=== PATIENT | female | born 2000 | race African-American/Black ===

== ENCOUNTER 2024-04-06 08:00 | Outpatient (CLI) | payer OTHER, SELFPAY ==
--- NOTE | ~2024-04-06 | US_ITS ---
EXAM: PELVIC ULTRASOUND HISTORY: R10.9 - Unspecified abdominal pain . Pelvic pain. COMPARISON: None FINDINGS: UTERUS: 8.4 x 4.7 x 3.1 cm. The uterus is anteverted and anteflexed. The endometrial complex measures 2.3 mm. RIGHT OVARY: The right ovary is unremarkable in echogenicity and size measuring 3.6 x 2.2 x 1.7 cm. Dopplerable flow is identified. LEFT OVARY: The left ovary is unremarkable in echogenicity and size measuring 3.8 x 1.9 x 1.9 cm Dopplerable flow is identified. Trace free fluid is identified within the pelvis, likely physiologic. IMPRESSION: Unremarkable sonographic evaluation of the, as detailed above. Reviewed, dictated and finalized at location A. P PRACTICE PEDIATRICIAN
--- OUTSIDE RECORDS SUMMARY | 2024-04-06 08:08 | XMS_ITS | Clinical Summary ---
Author Organization [facility] Address [address] [place] [address] Care Team Providers Care Drag Car Racer Name Role Phone Dave, Maria Alejandra Greer DO Primary Care Provider [phone] Allergies No known active allergies Medications ondansetron 4 MG disintegrating tablet Take 1 tablet (4 mg total) by mouth every 8 (eight) hours as needed for Nausea (and headache). 20 tablet 8 Active cyclobenzaprine 10 MG tablet Take 0.5 tablets (5 mg total) by mouth 3 (three) times daily as needed. 16 tablet 2 Active methylPREDNISolone, JOO, (MEDROL DOSEPAK) 4 MG tablet Take 1 tablet (4 mg total) by mouth daily. 6 TABLETS ON DAY ONE, 5 TABLETS DAY TWO, 4 TABLETS DAY THREE, 3 TABLETS DAY FOUR, 2 TABLETS DAY FIVE, AND 1 TABLET DAY SIX 1 each 4 Active Encounters Date Type Department Care Team Description 02/02/2024 8:11 AM POWER GENERATING PLANT OPERATOR - 02/02/2024 9:13 AM [facility] Emergency [facility] [place] [address] [place] [address] Salvador Conroy PA-C Sore Throat; Flu Like Symptoms Discharge Disposition: Home or Self Care (Routine Discharge) 02/02/2024 Travel from Last 3 Months Social History Tobacco Use Types Packs/Day Years Used Date Smoking Tobacco: Never Smokeless Tobacco: Never Alcohol Use Standard Drinks/Week Comments No 0 (1 standard drink = 0.6 oz pur e alcohol) AUDIT-C Answer Date Recorded Frequency of Alcohol Consumption Never 12/11/2017 Average Number of Drinks Not on file 018 Frequency of Binge Drinking Not on file 03/2017 Comments No Sex and Gender Information Value Date Recorded Sex Assigned at Not on file Legal Sex Female 3:53 PM CDT Gender Identity Not on file Sexual Orientation Not on file Last Filed Vital Signs Vital Sign Reading Time Taken Comments Blood Pressure 121/65 02/02/2024 8:03 AM POWER GENERATING PLANT OPERATOR Pulse 113 02/02/2024 9:05 AM POWER GENERATING PLANT OPERATOR Temperature 36.8 C (98.3 F) 02/02/2024 8:03 AM POWER GENERATING PLANT OPERATOR Respiratory Rate 18 02/02/2024 8:03 AM POWER GENERATING PLANT OPERATOR Oxygen Saturation 100% 02/02/2024 8:59 AM POWER GENERATING PLANT OPERATOR Inhaled Oxygen Concentration - - Weight 51.3 kg (113 lb) 02/02/2024 8:03 AM POWER GENERATING PLANT OPERATOR Height 154.9 cm (5' 1 ) 02/02/2024 8:03 AM POWER GENERATING PLANT OPERATOR Body Mass Index 21.35 02/02/2024 8:03 AM POWER GENERATING PLANT OPERATOR Plan of Treatment Health Maintenance Due Date Last Done Comments Cervical Cancer Screening Pap Smear (Age 21 to 29) Every 3 Years 2002 Cervical Cancer Screening 2002 Annual Physical 2005 Meningococcal B Vaccine (1 of 2 - Standard) 2018 Hepatitis C 2020 COVID-19 Vaccine ( - season) 2023 Influenza Adult (#1) 2023 11/25/2017 DTaP, Tdap and Td Vaccines (7 - Td or Tdap) 08/14/2024 08/14/2014, 12/08/2007, 05/20/2004, Additional history exists Hepatitis B Vaccines Completed 05/20/2004, 05/20/2004, 06/16/2003, Additional history exists Pneumococcal Vaccine: Pediatrics (0 to 5 Years) and At-Risk Patients (6 to 64 Years) Aged Out 05/20/2004, 09/25/2003, 04/11/2003, Additional history exists No longer eligible based on patient's age to complete this topic HPV Vaccines Completed 12/16/2018, 03/23/2017 Meningococcal Vaccine Completed 12/16/2018, 015 RSV Immunizations Under 20 Months Aged Out No longer eligible based on patient's age to complete this topic Procedures Procedure Name Priority Date/Time Associated Diagnosis Comments INFLUENZA A & B STAT 02/02/2024 8:15 AM POWER GENERATING PLANT OPERATOR CORONAVIRUS (COVID 19) STAT 02/02/2024 8:15 AM POWER GENERATING PLANT OPERATOR from Last 3 Months Results * CORONAVIRUS (COVID 19) (02/02/2024 8:15 AM POWER GENERATING PLANT OPERATOR) CORONAVIRUS SARS COV 2 RNA NEGATIVE NEGATIVE 02/02/2024 8:39 AM POWER GENERATING PLANT OPERATOR [facility] Comment: NEGATIVE RESULTS DO NOT RULE OUT COVID 19 AND SHOULD NOT BE USED THE SOLE BASIS FOR TREATMENT OR PATIENT MANAGEMENT DECISIONS, INCLUDING INFECTION CONTROL DECISIONS. NEGATIVE RESULTS SHOULD BE CONSIDERED IN THE CONTEXT OF A PATIENT'S RECENT EXPOSURES, HISTORY AND THE PRESENCE OF CLINICAL SIGNS AND SYMPTOMS CONSISTENT WITH COVID 19. THE ID NOW COVID-19 2.0 TEST HAS BEEN AUTHORIZED BY THE FDA UNDER EAU FOR USE BY AUTHORIZED LABORATORIES. PERFORMED BY NUCLEIC ACID AMPLIFICATION FOR MOLECULAR QUALITATIVE DETECTION OF SARS-COV-2. SPECIMEN TYPE NASAL 02/02/2024 8:15 AM POWER GENERATING PLANT OPERATOR [facility] NASAL STRUCTURE / Unknown 02/02/2024 8:15 AM POWER GENERATING PLANT OPERATOR Salvador Conroy PA-C MICROBIOLOGY - GENERAL DIANA GARCIA Final Result [facility] [address] [place] [address], * INFLUENZA A & B (02/02/2024 8:15 AM POWER GENERATING PLANT OPERATOR) SPECIMEN TYPE NASAL 02/02/2024 8:17 AM POWER GENERATING PLANT OPERATOR [facility] INFLUENZA A NEGATIVE NEGATIVE 02/02/2024 8:39 AM POWER GENERATING PLANT OPERATOR [facility] INFLUENZA B NEGATIVE NEGATIVE 02/02/2024 8:39 AM POWER GENERATING PLANT OPERATOR [facility] Comment: Interpretation: Negative for Influenza A and B. A negative result does not exclude influenza virus infection. If influenza is circulating in your community, a diagnosis of influenza should be considered based on a patient's clinical presentation and empiric antiviral treatment should be considered, if indicated. If more conclusive testing is needed for hospitalized inpatients, follow-up confirmatory testing with RT-PCR requires a separate order. NASAL STRUCTURE / Unknown 02/02/2024 8:15 AM POWER GENERATING PLANT OPERATOR Salvador Conroy PA-C MICROBIOLOGY - GENERAL DIANA GARCIA Final Result [facility] [address] [place] [address], from Last 3 Months Insurance [facility] JYOTI Advance Directives Documents on File Type Date Recorded Patient Textile Finisher Expl anation Legal Documents 10/22/2021 9:57 AM COMPLET ED BILLING REQUEST FOR ATTErnie ALEJANDRO Care Teams Drag Car Racer Relationship Specialty Start Date End Date Maria Alejandra Acosta DO [address] [address] PCP - General FAMILY PRACTICE 02/02/24
== END 2024-04-06 08:01 | disposition home or self-care (01) ==
LOC: ANHIMG 08:02
PROVIDERS: Visit Provider Obstetrics & Gynecology
DX: R10.9 Unspecified abdominal pain (principal)
CPT/HCPCS: 76830; 76856

== ENCOUNTER 2024-05-09 18:10 | Emergency (ER) | payer OTHER, SELFPAY ==
--- NOTE | ~2024-05-09 | XR_ITS ---
CHEST RADIOGRAPH, PA AND LATERAL CLINICAL HISTORY: shortness of breath . COMPARISON: None available TECHNIQUE: PA and lateral views of the chest. FINDINGS The cardiomediastinal silhouette is unremarkable. The lungs are clear. Visualized osseous structures and soft tissues are unremarkable. IMPRESSION: No focal infiltrate or effusion. Reviewed, dictated and finalized at location A.
--- OUTSIDE RECORDS SUMMARY | 2024-05-09 18:12 | XMS_ITS | Clinical Summary ---
Author Organization [facility] Address [address] [place] [address] Care Team Providers Care Industrial Cafeteria Manager Name Role Phone Dave, Maria Alejandra Greer DO Primary Care Provider [phone] Allergies No known active allergies Medications ondansetron [...] TABLET DAY SIX 1 each 4 Active Social History Tobacco Use Types Packs/Day Years [...] Comments Blood Pressure 121/65 02/02/2024 8:03 AM GAME AND FISH PROTECTOR Pulse 113 02/02/2024 9:05 AM GAME AND FISH PROTECTOR Temperature 36.8 C (98.3 F) 02/02/2024 8:03 AM GAME AND FISH PROTECTOR Respiratory Rate 18 02/02/2024 8:03 AM GAME AND FISH PROTECTOR Oxygen Saturation 100% 02/02/2024 8:59 AM GAME AND FISH PROTECTOR Inhaled Oxygen Concentration - - Weight 51.3 kg (113 lb) 02/02/2024 8:03 AM GAME AND FISH PROTECTOR Height 154.9 cm (5' 1 ) 02/02/2024 8:03 AM GAME AND FISH PROTECTOR Body Mass Index 21.35 02/02/2024 8:03 AM GAME AND FISH PROTECTOR Plan of Treatment Health Maintenance Due Date Last Done Comments Cervical Cancer Screening Pap Smear (Age 21 to 29) Every 3 Years 2002 Cervical Cancer Screening 2002 Annual Physical 2005 Meningococcal B Vaccine (1 of 2 - Standard) 2018 Hepatitis C 2020 COVID-19 Vaccine ( - season) 2023 DTaP, Tdap and Td Vaccines (7 - [...] on patient's age to complete this topic Insurance [facility] Advance Directives Documents on File Type Date Recorded Patient Ruling Technician Expl anation Legal Documents 10/22/2021 9:57 AM COMPLET ED BILLING REQUEST FOR MARTA ALEJANDRO Care Teams Industrial Cafeteria Manager Relationship Specialty Start Date End Date Maria Alejandra Acosta DO [address] [facility] [address] [place] [address] PCP - General FAMILY PRACTICE 02/02/24
[2024-05-09 18:25] VITALS: BP 109/80; PULSE 67; RESP 16; TEMP 36.5; O2SAT 100
--- NOTE | 2024-05-09 18:28 | ED.SOB ---
HPI - SOB/Dyspnea General Chief Complaint: Asthma <Elida Ordoñez APRN - Last Filed: 05/09/24 18:31> Stated Complaint: asthma <Elida Ordoñez APRN - Last Filed: 05/09/24 18:31> Time Seen by Provider: 05/09/24 18:25 <Elida Ordoñez APRN - Last Filed: 05/09/24 18:31> Focused HPI: Patient's is a 23-year-old female who presents to the ER with concerns of an asthma attack. She reports she started experiencing sinus infection last Thursday, 5 days ago. Patient reports she had asthma as a child but has not had any asthma attacks recently, so she no longer has any inhalers at home. She endorses some wheezing, shortness of breath, sinus pain. Patient denies any chest pain, recent fevers, back pain, neck stiffness, mastoid tenderness. GENERAL: Well-appearing, well-nourished, and in no acute distress. HEAD: Normocephalic, atraumatic. CHEST: Clear to auscultation. ?No respiratory distress. HEART: Regular rate and rhythm.? NEURO: ?Alert and oriented x3. Patient screened in triage and initial orders placed.? ?Additional care and disposition to be based upon?diagnostic testing and treatment. <Elida Ordoñez APRN - Last Filed: 05/09/24 18:31> History of Present Illness HPI Narrative: Agree with the HPI above. Patient states her symptoms started as a sinus infection and may have triggered her asthma. She does not any inhalers at home. <Des Mayorga MD - Last Filed: 05/09/24 20:28> Related Data Allergies/Adverse Reactions: Allergies Allergy/AdvReac Type Severity Reaction Status Date / Time No Known Allergies Allergy Verified 05/09/24 18:13 <Elida Ordoñez APRN - Last Filed: 05/09/24 18:31> Review of Systems Review of Systems: As reviewed above in HPI <Des Mayorga MD - Last Filed: 05/09/24 20:28> PMFSH Past Medical History Medical History: Medical History Nexplanon insertion 02/2023 Asthma <Elida Ordoñez APRN - Last Filed: 05/09/24 18:31> Family History Family History: Family History Mother Hypertension Sibling Hypertension <Elida Ordoñez, MEDICAL DOSIMETRIST - Last Filed: 05/09/24 18:31> Social History Social History: Social History Smoking status: Never smoker Alcohol intake: never Substance use: never Do You Feel Safe in your Home?: Yes Lack of Transportation: No Lack of Food: Never True Current Housing: I Have Housing Concerned About Future Housing: No Difficulty Paying Gas/Electric Bills: No Difficulty Paying for Meds: No Currently Unemployed: No Education: High School Diploma/GED Difficulty w/ Childcare or Family Care: No Living arrangements: with family Occupation/Education: student 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 Moist mucous membranes. NECK: Supple. CHEST: Mild end-expiratory wheezing, good air entry, no tachypnea, no accessory muscle use HEART: [Regular rate and rhythm]. No murmur heard. [Normal peripheral pulses.] ABDOMEN: [Soft, nondistended], [nontender], [No rigidity or guarding] EXTREMITIES: Normal range of motion. [No edema.] SKIN: Warm, dry, no rash. NEURO: [No focal deficits]. Alert and oriented [x3.] PSYCH: [Normal mood and affect.] <Des Mayorga MD - Last Filed: 05/09/24 20:28> Course Vital Signs Vital signs: Vital Signs Temperature 36.5 C 05/09/24 18:25 Pulse Rate 67 05/09/24 18:25 Respiratory Rate 16 05/09/24 18:25 Blood Pressure 109/80 05/09/24 18:25 Pulse Oximetry 100 05/09/24 18:25 Temperature 36.5 C 05/09/24 18:25 Pulse Rate 67 05/09/24 18:25 Respiratory Rate 16 05/09/24 18:25 Blood Pressure 109/80 05/09/24 18:25 Pulse Oximetry 100 05/09/24 18:25 <Elida Ordoñez, MEDICAL DOSIMETRIST - Last Filed: 05/09/24 18:31> Vital Signs Temperature 36.5 C 05/09/24 18:25 Pulse Rate 67 05/09/24 18:25 Respiratory Rate 16 05/09/24 18:25 Blood Pressure 109/80 05/09/24 18:25 Pulse Oximetry 100 05/09/24 18:25 Temperature 36.5 C 05/09/24 18:25 Pulse Rate 67 05/09/24 18:25 Respiratory Rate 16 05/09/24 18:25 Blood Pressure 109/80 05/09/24 18:25 Pulse Oximetry 100 05/09/24 18:25 <Des Mayorga MD - Last Filed: 05/09/24 20:28> MDM - SOB/Dyspnea MDM Narrative Medical decision making narrative: 23-year-old otherwise healthy female with history of childhood asthma presenting with upper respiratory infection symptoms as she believed his triggered an asthma exacerbation. She has good air entry on auscultation does have some scattered end-expiratory wheezing. Reports chest tightness sensation but has good oxygenation at 100% on room air. No tachypnea, no retractions, no fever. Normal blood pressure and heart rate. She has been doing with a sinus infection with discolored mucus and does sound congested. Suspicion presently is for an upper respiratory infection, sinusitis that may have triggered either bronchospasm, bronchitis or asthma exacerbation. Low suspicion pneumonia. A broad workup was ordered in triage. Chest x-ray, CBC, CMP and dimer were obtained by triage staff. Laboratory studies are reassuring, no leukocytosis or anemia. Negative D-dimer. Normal renal function. Negative troponin. Negative LFTs. Chest x-ray without any infiltrate or effusion. Patient was treated with a dose of azithromycin for her sinusitis and given an asthma inhaler with albuterol. She is safe and stable for discharge home at this time. Will be started on prescriptions for azithromycin and methylprednisolone. Patient will follow-up with regular doctor. <Des Mayorga MD - Last Filed: 05/09/24 20:28> Medical Records Attestation: I reviewed the patient's medical records. <Des Mayorga MD - Last Filed: 05/09/24 20:28> Lab Data Attestation: I reviewed the patient's lab results. <Des Mayorga MD - Last Filed: 05/09/24 20:28> Result diagrams: 05/09/24 18:55 05/09/24 18:55 <Elida Ordoñez APRN - Last Filed: 05/09/24 18:31> Labs: Lab Results 05/09/24 Range/Units 18:55 WBC 5.4 (4.5-10.0) K/mm3 RBC 4.54 (4.2-5.4) M/mm3 Hgb 12.2 (12.0-15.0) g/dL Hct 38.2 (37.0-47.0) % MCV 84.1 (80-100) fl MCH 26.9 (26-34) pg MCHC 31.9 L (32-36) g/dl RDW 14.1 (11.5-14.5) % Plt Count 247 (150-375) k/mm3 MPV 10.5 H (7.4-10.4) fl Immature Gran % (Auto) 0.4 (0-0.5) % Neut % (Auto) 41.5 L (45.5-73.1) % Lymph % (Auto) 42.6 (18.3-44.2) % Stearns % (Auto) 10.7 H (2.6-8.5) % Eos % (Auto) 3.9 (0-4.4) % Baso % (Auto) 0.9 (0.2-1.2) % Lymph # (Auto) 2.31 (0.9-3.2) K/mm3 Stearns # (Auto) 0.6 (0.1-0.6) K/mm3 Eos # (Auto) 0.2 (0-0.3) K/mm3 Baso # (Auto) 0.1 (0.0-0.1) K/mm3 Abs Immat Gran (auto) 0.02 (0.00-0.031) K/mm3 Absolute Neuts (auto) 2.3 (1.3-6.7) K/mm3 Absolute Nucleated RBC 0.000 (0.0-0.012) K/mm3 Nucleated RBC % 0.0 (0.0-0.2) % PT 13.9 (11.1-14.7) Seconds INR 1.0 APTT 27.8 (22.3-36.8) Seconds D-Dimer < 0.27 (<0.48) ug/mL Sodium 138 (137-145) mmol/L Potassium 4.4 (3.4-5.0) mmol/L Chloride 102 (98-107) mmol/L Carbon Dioxide 28 (22-30) mmol/L Anion Gap 8 (4-12) mmol/L BUN 11 (7-17) mg/dL Creatinine 0.70 (0.7-1.0) mg/dL Estim Creat Clear Calc 83 ml/min Estimated GFR > 60 (59 - ) Glucose 84 (65-110) mg/dL Calcium 9.3 (8.4-10.2) mg/dL Magnesium 2.0 (1.6-2.3) mg/dL Total Bilirubin 0.3 (0.2-1.3) mg/dL AST 32 (14-36) U/L ALT 34 (6-35) U/L Alkaline Phosphatase 79 (38-126) U/L Troponin I < 0.012 (0.000-0.034) ng/mL Total Protein 8.0 (6.3-8.2) g/dL Albumin 4.3 (3.5-5.1) g/dL <Elida Ordoñez, MEDICAL DOSIMETRIST - Last Filed: 05/09/24 18:31> Lab Results 05/09/24 Range/Units 18:55 WBC 5.4 (4.5-10.0) K/mm3 RBC 4.54 (4.2-5.4) M/mm3 Hgb 12.2 (12.0-15.0) g/dL Hct 38.2 (37.0-47.0) % MCV 84.1 (80-100) fl MCH 26.9 (26-34) pg MCHC 31.9 L (32-36) g/dl RDW 14.1 (11.5-14.5) % Plt Count 247 (150-375) k/mm3 MPV 10.5 H (7.4-10.4) fl Immature Gran % (Auto) 0.4 (0-0.5) % Neut % (Auto) 41.5 L (45.5-73.1) % Lymph % (Auto) 42.6 (18.3-44.2) % Stearns % (Auto) 10.7 H (2.6-8.5) % Eos % (Auto) 3.9 (0-4.4) % Baso % (Auto) 0.9 (0.2-1.2) % Lymph # (Auto) 2.31 (0.9-3.2) K/mm3 Stearns # (Auto) 0.6 (0.1-0.6) K/mm3 Eos # (Auto) 0.2 (0-0.3) K/mm3 Baso # (Auto) 0.1 (0.0-0.1) K/mm3 Abs Immat Gran (auto) 0.02 (0.00-0.031) K/mm3 Absolute Neuts (auto) 2.3 (1.3-6.7) K/mm3 Absolute Nucleated RBC 0.000 (0.0-0.012) K/mm3 Nucleated RBC % 0.0 (0.0-0.2) % PT 13.9 (11.1-14.7) Seconds INR 1.0 APTT 27.8 (22.3-36.8) Seconds D-Dimer < 0.27 (<0.48) ug/mL Sodium 138 (137-145) mmol/L Potassium 4.4 (3.4-5.0) mmol/L Chloride 102 (98-107) mmol/L Carbon Dioxide 28 (22-30) mmol/L Anion Gap 8 (4-12) mmol/L BUN 11 (7-17) mg/dL Creatinine 0.70 (0.7-1.0) mg/dL Estim Creat Clear Calc 83 ml/min Estimated GFR > 60 (59 - ) Glucose 84 (65-110) mg/dL Calcium 9.3 (8.4-10.2) mg/dL Magnesium 2.0 (1.6-2.3) mg/dL Total Bilirubin 0.3 (0.2-1.3) mg/dL AST 32 (14-36) U/L ALT 34 (6-35) U/L Alkaline Phosphatase 79 (38-126) U/L Troponin I < 0.012 (0.000-0.034) ng/mL Total Protein 8.0 (6.3-8.2) g/dL Albumin 4.3 (3.5-5.1) g/dL <Des Mayorga MD - Last Filed: 05/09/24 20:28> Imaging Data Attestation: I personally reviewed and interpreted this imaging study as follows: <Des Mayorga MD - Last Filed: 05/09/24 20:28> My impression: Impressions Chest X-Ray 05/09/24 19:26 IMPRESSION: No focal infiltrate or effusion. <Des Mayorga MD - Last Filed: 05/09/24 20:28> Discharge Plan Discharge Clinical Impression: Sinusitis, Asthma exacerbation <Elida Ordoñez APRN - Last Filed: 05/09/24 18:31> Patient Disposition: Home, Self-Care <Elida Ordoñez APRN - Last Filed: 05/09/24 18:31> Condition: Stable <Elida Ordoñez APRN - Last Filed: 05/09/24 18:31> Instructions: Antibiotic Form, Asthma (ED), Sinusitis (ED), Bronchospasm (ED) <Elida Ordoñez APRN - Last Filed: 05/09/24 18:31> Additional Instructions: Follow-up with regular doctor. We will send you home with an albuterol inhaler as well as a short course of antibiotics and steroids. Return with any new concerns. <Elida Ordoñez APRN - Last Filed: 05/09/24 18:31> Patient Language: Frisian <Elida Ordoñez APRN - Last Filed: 05/09/24 18:31> Prescriptions: New methylprednisolone [Medrol (Regino)] 4 mg tablets,dose pack See Rx Instructions .ROUTE .COMPLEX Qty: 21 0RF Rx Instructions: orally per package directions albuterol sulfate 90 mcg/actuation HFA aerosol inhaler 2 puff inhalation QID PRN (Reason: shortness of breath or wheezing) Qty: 8.5 0RF azithromycin [Zithromax TRI-REGINO] 500 mg tablet 500 mg PO DAILY 5 Days Qty: 5 0RF No Action fluconazole 150 mg tablet 150 mg PO WEEKLY 168 Days Qty: 24 0RF fluconazole 150 mg tablet 150 mg PO Q72H Qty: 3 0RF <Elida Ordoñez APRN - Last Filed: 05/09/24 18:31> Follow-up/Referrals: PHYSICIAN NOT ON STAFF,NONSTAFF [Primary Care Provider] - <Elida Ordoñez APRN - Last Filed: 05/09/24 18:31> Time of Disposition: 20:28 <Elida Ordoñez APRN - Last Filed: 05/09/24 18:31> 20:28 <Des Mayorga MD - Last Filed: 05/09/24 20:28>
[2024-05-09 19:07] LABS: Basophils Absolute Auto 0.1 K/mm3 (0.0-0.1); Basophils Percent Auto 0.9 % (0.2-1.2); Eosinophils Absolute Auto 0.2 K/mm3 (0-0.3); Eosinophils Percent Auto 3.9 % (0-4.4); Hematocrit 38.2 % (37.0-47.0); Hemoglobin 12.2 g/dL (12.0-15.0); Immature Granulocyte Absolute 0.02 K/mm3 (0.00-0.031); Immature Granulocyte Percent A 0.4 % (0-0.5); Lymphocytes Absolute Auto 2.31 K/mm3 (0.9-3.2); Lymphocytes Percent Auto 42.6 % (18.3-44.2); Mean Corpuscular HGB Conc 31.9 g/dl (32-36); Mean Corpuscular Hemoglobin 26.9 pg (26-34); Mean Corpuscular Volume 84.1 fl (80-100); Mean Platelet Volume 10.5 fl (7.4-10.4); Monocytes Absolute Auto 0.6 K/mm3 (0.1-0.6); Monocytes Percent Auto 10.7 % (2.6-8.5); Neutrophils Absolute Auto 2.3 K/mm3 (1.3-6.7); Neutrophils Percent Auto 41.5 % (45.5-73.1); Platelet Count Result 247 k/mm3 (150-375); Red Blood Count 4.54 M/mm3 (4.2-5.4); Red Cell Distribution Width 14.1 % (11.5-14.5); White Blood Count 5.4 K/mm3 (4.5-10.0)
[2024-05-09 19:16] LABS: Prothrombin Time 13.9 Seconds (11.1-14.7)
[2024-05-09 19:17] LABS: Partial Thromboplastin Time 27.8 Seconds (22.3-36.8)
[2024-05-09 19:23] LABS: Alanine Aminotransferase 34 U/L (6-35); Albumin Level 4.3 g/dL (3.5-5.1); Alkaline Phosphatase 79 U/L (38-126); Anion Gap 8 mmol/L (4-12); Aspartate Amino Transferase 32 U/L (14-36); Bilirubin,Total 0.3 mg/dL (0.2-1.3); Blood Urea Nitrogen 11 mg/dL (7-17); Calcium 9.3 mg/dL (8.4-10.2); Carbon Dioxide 28 mmol/L (22-30); Chloride 102 mmol/L (98-107); Estimated CRCL calculation 83 ml/min; Estimated Glomerular Filt Rate > 60; Glucose 84 mg/dL (65-110); Potassium 4.4 mmol/L (3.4-5.0); Sodium 138 mmol/L (137-145)
[2024-05-09 19:35] LABS: Troponin I < 0.012 ng/mL (0.000-0.034)
[2024-05-09 19:50] LABS: D Dimer < 0.27 ug/mL (<0.48)
[2024-05-09 20:10] VITALS: O2SAT 99
--- OUTSIDE RECORDS SUMMARY | 2024-05-09 20:32 | XMS_ITS | Clinical Summary ---
Author Organization [facility] Address [address] [place] [address] Care Team Providers Care Homeowner Association Manager Name Role Phone Dave, Maria Alejandra Greer DO Primary Care Provider [phone] Allergies No known active allergies Medications ondansetron [...] Comments Blood Pressure 121/65 02/02/2024 8:03 AM SENIOR PIPING DESIGNER Pulse 113 02/02/2024 9:05 AM SENIOR PIPING DESIGNER Temperature 36.8 C (98.3 F) 02/02/2024 8:03 AM SENIOR PIPING DESIGNER Respiratory Rate 18 02/02/2024 8:03 AM SENIOR PIPING DESIGNER Oxygen Saturation 100% 02/02/2024 8:59 AM SENIOR PIPING DESIGNER Inhaled Oxygen Concentration - - Weight 51.3 kg (113 lb) 02/02/2024 8:03 AM SENIOR PIPING DESIGNER Height 154.9 cm (5' 1 ) 02/02/2024 8:03 AM SENIOR PIPING DESIGNER Body Mass Index 21.35 02/02/2024 8:03 AM SENIOR PIPING DESIGNER Plan of Treatment Health Maintenance Due Date [...] patient's age to complete this topic Insurance [facility] Advance Directives Documents on File Type Date Recorded Patient Energy Administrator Expl anation Legal Documents 10/22/2021 9:57 AM COMPLET ED BILLING REQUEST FOR MARTA ALEJANDRO Care Teams Homeowner Association Manager Relationship Specialty Start Date End Date Maria Alejandra Acosta DO [address] [facility] [address] [place] [address] PCP - General FAMILY PRACTICE 02/02/24
[2024-05-09] MEDS: AZITHROMYCIN 250 MG TABLET 500 MG PO (20:34)
[2024-05-09 20:41] VITALS: RESP 18
[2024-05-09] MEDS: ALBUTEROL SULFATE (*SP) AEROSOL 1 PUFF 2 PUFF INHALATION (20:41)
--- NOTE | 2024-05-09 21:26 | PCRCNOTE ---
Patient was given 2 puffs of an albuterol inhaler as ordered while in the ER. Doctor proceeded to want patient to have an Albuterol inhaler sent home with her, by the time the order was put in and pharmacy sent the inhaler down to ER, the RT went to bring the inhaler to patient and the patient was gone already discharged. Patient was not given inhaler due to her leaving early without her nurse seeing her out. Nurse and pharmacy aware of this.
== END 2024-05-09 20:50 | disposition home or self-care (01) ==
LOC: ANHED 20:30
PROVIDERS: Registered Nurse; Emergency Provider Student in an Organized Health Care Education/Training Program
DX: J45.901 Unspecified asthma with (acute) exacerbation (principal); J32.9 Chronic sinusitis, unspecified
CPT/HCPCS: 36415; 71046; 80053; 83735; 84484; 85025; 85380; 85610; 85730; 94640; 94664; 99284; A9270